=== PATIENT | female | born 1950 | race Caucasian/White ===

== ENCOUNTER 2018-02-06 20:48 | Emergency (ER) | payer MEDICARE, SELFPAY ==
[2018-02-06 20:48] VITALS: BP 122/68; PULSE 70; RESP 14; TEMP 36.6; O2SAT 97; BMI 39.3
--- NOTE | 2018-02-06 20:56 | NURSING ---
CALLED FOR EKG PER RN REQUEST, NO OLD EKG'S IN MUSE
--- NOTE | 2018-02-06 21:17 | CT_ITS ---
STUDY: CT BRAIN WITHOUT CONTRAST REASON FOR EXAM: Female, 67 years old. Trauma RADIATION DOSAGE (If Supplied By Facility): CTDIvol = ( 44.99 ) mGy, DLP = ( 846.73 ) mGycm TECHNIQUE: Transaxial CT imaging of the brain was performed without administration of intravenous contrast material. Individualized dose optimization techniques were used for this CT. COMPARISON: None. FINDINGS: There is no acute bleed or infarct. There are normal white matter tracts. The ventricles are normal in configuration. There is no hydrocephalus. There is a small amount of fluid in the left maxillary sinus. The visualized paranasal sinuses are otherwise clear. The mastoid air cells are well aerated. There is no skull fracture. There is a questionable left nasal bone fracture. Correlation for pain in this area is recommended. CT/Brain/Head without Contrast IMPRESSION: No acute intracranial abnormality. Questionable left nasal bone fracture. Correlation for pain in this area is recommended. Fluid in the left maxillary sinus. Electronically Signed: Damian Ash, at 21:53 EDT Tel , Service support ,
--- NOTE | 2018-02-06 21:17 | EKG12_ITS ---
Test Reason : Blood Pressure : / mmHG Vent. Rate : 071 BPM Atrial Rate : 071 BPM P-R Int : 200 ms QRS Dur : 100 ms QT Int : 402 ms P-R-T Axes : 026 -11 029 degrees QTc Int : 436 ms Normal sinus rhythm Inferior infarct , age undetermined Abnormal ECG Confirmed by MARKO ROSSI, KELBY ([id number]), digital editor TRICIA BERRY ([id number] on 02/10/2018 2:55:51 PM Referred By: SANJAY Confirmed By:KELBY ZHU MD
--- NOTE | 2018-02-06 21:30 | RAD_ITS ---
STUDY: X-RAY CHEST REASON FOR EXAM: Female, 67 years old. Syncope TECHNIQUE: Frontal and lateral views of the chest COMPARISON: None. FINDINGS: The lungs are clear. There are no pleural effusions. There is no pneumothorax. The heart is normal in size. There are degenerative changes noted in the spine. RAD/Chest PA and Lateral IMPRESSION: No acute thoracic pathology. Electronically Signed: Damian Ash, at 22:23 EDT Tel , Service support ,
[2018-02-06 21:41] LABS: Absolute Lymphocyte Count 1.79 X10^3/ul (0.83-4.51); Absolute Neutrophil Count 4.1 X10^3/uL (2.0-7.7); Basophil# 0.04 X10^3/uL; Basophil% 0.6 % (0-1); Eosinophil# 0.24 X10^3/uL; Eosinophils% 3.6 % (0-5); Hematocrit 41.9 % (37-47); Hemoglobin 13.3 g/dl (12.0-15.0); Lymphocyte # 1.79 X10^3/ul (4.0); Mean Corp Hgb Conc 31.7 g/gl (32-36); Mean Corpuscular Volume 91.5 fL (81-99); Mean Platelet Vol. 10.9 fl (6.2-12.0); Monocyte# 0.46 X10^3/uL; Monocyte% 6.9 % (0-10); Neutrophil # 4.09 X10^3/uL (2.7-7.7); Neutrophil % 61.7 % (47-70); Platelet Count 193 K/mm3 (150-450); RBC Distribution Width CV 13.3 % (11.6-14.6); RBC Distribution Width SD 44.2 fl (35.1-43.9); Red Blood Count 4.58 M/mm3 (4.2-5.4); White Blood Count 6.6 K/mm3 (4.4-11.0)
[2018-02-06 21:50] LABS: POSITIVE COUNT NO; POSITIVE DIFFERENTIAL NO; POSITIVE MORPHOLOGY NO
[2018-02-06 21:52] LABS: Anion Gap 6 (5-15); BUN 25 mg/dL (7-18); BUN/Creat Ratio 20.8 RATIO (10-20); Calcium,Total 9.2 mg/dL (8.5-10.1); Chloride 103 mmol/L (98-107); EST Glomerular Filtration Rate 48 mL/min (>60); Est Glom Filt Rate - Afr Amer 58 mL/min (>60); Estimated Creatinine Clearance 35.98 ml/min; Glucose 129 mg/dL (74-106); Potassium 3.4 mmol/L (3.5-5.1); Sodium Level 139 mmol/L (136-145)
[2018-02-06 22:48] VITALS: BP 134/76; PULSE 75; RESP 15; O2SAT 98
--- NOTE | 2018-02-06 23:33 | ED.DCSUM_ITS ---
- ER Visit Summary Date of Service: 02/06/18 Chief Complaint: Syncope History of Present Illness: The patient is a 67 F who states that tonight she was residing over a meeting. She was standing for approximately 10-15 minutes. She began to feel dizzy and then clammy and then nauseated. Eventually she was very sweaty. She states that she passed out falling down approximately 3 steps. She came to. She denies any chest pain or palpitations. He has never had syncope before. She has a history of hypertension and is on lisinopril hydrochlorothiazide for that. Physical Examination: Afebrile vital signs are stable Gen: Well-nourished well-developed Head: Normocephalic right-sided facial abrasions Eyes: Perrl EOMI ENT: TMs clear no rhinorrhea moist mucous membranes nasal swelling there is no septal hematoma Neck: Supple no lymphadenopathy no JVD nontender CVS: Regular rate rhythm no murmurs normal S1-S2 Respiratory: No distress clear to auscultation bilaterally chest nontender Abdomen: Soft nontender nondistended normal bowel sounds no masses Back: Nontender Extremity: Nontender no edema Skin: Normal color no rash Neuro: alert orientated ?3 CN II-XII intact normal strength sensation reflexes gait cerebellar Psych: Normal affect normal mood Test Results: EKG shows a sinus rhythm at a rate of 71. Intervals are normal. CBC was normal. Chemistry showed a glucose 129 BUN 25 creatinine 1.20 potassium 3.4. Troponin negative. Chest x-ray negative. CT of the brain demonstrates a possible nasal fracture. Emergency Department Course and Treatment: Patient has had no events on the monitor. She feels well. She will be discharged home with instructions to follow-up with her doctor. She is to return if syncope returns or she is worsening. Impression: 1. Syncope 2. Facial abrasions 3. Nasal fractures This note was generated with [employer] dictation software. It may contain incorrect words, spelling, and punctuation that were not noted in review of the chart prior to signing ED Disposition - Plan for ED Patient: Disposition: Home or Assisted Living Chief Complaint: Syncope Instructions: ED Fainting Unkn Cause Referrals: Aurelia Silva NP-C [Primary Care Provider] - 1-2 Weeks
[2018-02-06 23:45] VITALS: BP 129/60; PULSE 76; RESP 20; O2SAT 95
== END 2018-02-06 23:46 | disposition home or self-care (01) ==
PROVIDERS: Emergency Provider Emergency Medicine; Family Provider Family Medicine; PCP Family Medicine
DX: S02.2XXA Fracture of nasal bones, initial encounter for closed fracture (principal); S00.81XA Abrasion of other part of head, initial encounter; X58.XXXA Exposure to other specified factors, initial encounter; Y93.89 Activity, other specified; Y92.9 Unspecified place or not applicable; R55 Syncope and collapse; I10 Essential (primary) hypertension
CPT/HCPCS: 70450; 71046; 80048; 84484; 85025; 93005; 99285; A4216

== ENCOUNTER 2018-06-25 21:05 | Emergency (ER) | payer MEDICARE, SELFPAY ==
[2018-06-25 21:06] VITALS: BP 103/65; PULSE 67; PULSE 68; RESP 18; TEMP 36.9; O2SAT 97; O2SAT 99; BMI 34.0
--- NOTE | 2018-06-25 21:21 | EKG12_ITS ---
Test Reason : SYNCOPE Blood Pressure : / mmHG Vent. Rate : 069 BPM Atrial Rate : 069 BPM P-R Int : 208 ms QRS Dur : 094 ms QT Int : 434 ms P-R-T Axes : 025 -06 015 degrees QTc Int : 465 ms Normal sinus rhythm Inferior infarct , age undetermined Abnormal ECG Confirmed by MATT VALENTINE ([id number]), publication editor TRICIA BERRY ([id number]) on 07/01/2018 1:38:02 PM Referred By: CHACE Confirmed By:MATT VALENTINE
[2018-06-25 21:39] VITALS: BP 115/63; BP 116/71; BP 117/68; PULSE 76; PULSE 77
[2018-06-25 22:12] LABS: Absolute Lymphocyte Count 1.21 X10^3/ul (0.83-4.51); Absolute Neutrophil Count 3.1 X10^3/uL (2.0-7.7); Basophil# 0.03 X10^3/uL; Basophil% 0.6 % (0-1); Eosinophil# 0.18 X10^3/uL; Eosinophils% 3.6 % (0-5); Hemoglobin 12.1 g/dl (12.0-15.0); Lymphocyte # 1.21 X10^3/ul (4.0); Lymphocyte % 23.9 % (19-41); Mean Corp Hgb Conc 32.7 g/gl (32-36); Mean Corpuscular Volume 91.6 fL (81-99); Mean Platelet Vol. 11.5 fl (6.2-12.0); Monocyte# 0.49 X10^3/uL; Monocyte% 9.7 % (0-10); Neutrophil # 3.14 X10^3/uL (2.7-7.7); Platelet Count 162 K/mm3 (150-450); Red Blood Count 4.04 M/mm3 (4.2-5.4); White Blood Count 5.1 K/mm3 (4.4-11.0)
[2018-06-25 22:18] LABS: POSITIVE COUNT NO; POSITIVE DIFFERENTIAL NO; POSITIVE MORPHOLOGY NO
[2018-06-25 22:25] LABS: Anion Gap 10 (5-15); BUN 21 mg/dL (7-18); BUN/Creat Ratio 17.2 RATIO (10-20); Chloride 107 mmol/L (98-107); Creatinine, Serum 1.22 mg/dL (0.55-1.02); EST Glomerular Filtration Rate 47 mL/min (>60); Est Glom Filt Rate - Afr Amer 56 mL/min (>60); Estimated Creatinine Clearance 35.39 ml/min; Glucose 117 mg/dL (74-106); Potassium 3.8 mmol/L (3.5-5.1); Sodium Level 141 mmol/L (136-145)
[2018-06-25] MEDS: 0.9% Normal Saline 1,000 ML 1000 ML IV (22:31)
[2018-06-25] MEDS: 0.9% Normal Saline 1,000 ML 150 ML IV (22:31)
[2018-06-25 22:32] VITALS: BP 115/72; PULSE 69; RESP 20; O2SAT 98
--- NOTE | 2018-06-25 22:40 | ED.RN ---
pt reports cannot void at this time. has had 1 L NS and 2nd liter is running.
[2018-06-25 23:39] VITALS: BP 111/67; PULSE 73; RESP 16; O2SAT 100
--- NOTE | 2018-06-25 23:42 | ED.DCSUM_ITS ---
- ER Visit Summary Date of Service: 06/25/18 Chief Complaint: Syncope History of Present Illness: The patient is a 67 F who was cooking dinner tonight became lightheaded. She sat down and then had a syncopal episode. She did report a vomit one time after coming around. She had been outside in the heat approximately 30 minutes before this episode. She denies palpitations or chest pain. She states she remembers feeling lightheaded and got slightly clammy and nauseated before she passed out. She did have a similar episode in January and has had no symptoms in the interval timeframe. Physical Examination: Blood pressure is 103/65, temperature 98.4, heart rate 68 , respiratory rate 18, pulse ox 99% on room air. Patient sitting upright in bed no acute distress. She is alert and talkative. Head neck examination is normal. Heart is regular rate and rhythm. Lung sounds are clear. Abdomen is soft nontender. Skin examination was no rash or lesions. Neuro exam is unremarkable. Test Results: EKG is sinus at 69 with no sign of acute ischemia. CBC and chemistry studies significant for BUN of 21 and creatinine of 1.22. Patient is only had one prior set of labs here with similar renal function at that time. Emergency Department Course and Treatment: Patient was given 2 L of IV fluid but is still been unable to urinate for us. A bladder scan was performed and only has 138 cc of urine. A third liter is hung. After 3 L IV fluid patient is able to provide a urine sample. There is no sign of acute infection as she does have 50-100 epithelial cells only 10-25 white cells. Patient was not symptomatic getting up to the restroom. She will increase fluids over the next several days. As she did have a prodrome and did not have palpitations, I think she likely had vasovagal syncope. Patient does not wish to stay in the hospital. Treatment Plan: [] Disposition: Discharge Impression: Vasovagal syncope This note was generated with [employer] dictation software. It may contain incorrect words, spelling, and punctuation that were not noted in review of the chart prior to signing ED Disposition - Plan for ED Patient: Chief Complaint: Syncope Referrals: Aurelia Silva NP-C [Primary Care Provider] -
[2018-06-25] MEDS: 0.9% Normal Saline 1,000 ML 999 ML IV (23:45)
[2018-06-26 00:49] LABS: Bacteria 0 SEEN /hpf (None Seen); Mucous, Urine 0 SEEN /hpf (<or=2+); Red Blood Cells-Urine 0 SEEN /hpf (0-5)
[2018-06-26 00:50] LABS: Color, Urine Yellow (Yellow); Glucose, Dipstick Normal (Normal); Ketone-Dipstick 15 mg/dl (Negative); Leukocyte Esterase-Dipstick 500 /ul (Negative); Nitrite-Dipstick Negative (Negative); Occult Blood-Urine 10 /ul (Negative); Protein-Dipstick 15 mg/dl (Negative); Urine Bilirubin Dipstick Negative (Negative); Urine Clarity Sl. Cloudy (Clear); Urine Urobilinogen Normal (Normal)
[2018-06-26 01:00] LABS: Calcium Oxalate Crystals Ur RARE /hpf (<or=2+); Squamous Epithelial Cells - UA 50-100 SEEN /hpf (5-10); White Blood Cells 10-25 SEEN /hpf (0-5)
--- NOTE | 2018-06-26 01:04 | ED.DEP ---
ED Disposition - Plan for ED Patient: Disposition: Home or Assisted Living Chief Complaint: Syncope Instructions: ED Syncope Vasovagal Referrals: Aurelia Silva NP-C [Primary Care Provider] - 1 Week
[2018-06-26 01:07] VITALS: BP 121/69; PULSE 74; RESP 18; O2SAT 94
== END 2018-06-26 01:09 | disposition home or self-care (01) ==
PROVIDERS: Emergency Provider Emergency Medicine; Family Provider Family Medicine; PCP Family Medicine
DX: R55 Syncope and collapse (principal); I10 Essential (primary) hypertension
CPT/HCPCS: 80048; 81001; 85025; 93005; 96360; 96361; 99285; J7030; A4216

== ENCOUNTER → 2020-08-31 07:46 | Outpatient (CLI) | payer MEDICARE, SELFPAY ==
--- NOTE | 2020-08-31 07:49 | CT_ITS ---
STUDY: CT ABDOMEN AND PELVIS WITHOUT CONTRAST REASON FOR EXAM: Female, 70 years old. Other hydronephrosis. Patient has no pain or blood in urine. Recent laparoscopic HUA/BSO d/t uterine cancer RADIATION DOSAGE (If Supplied By Facility): CTDIvol = ( 7.43 ) mGy, DLP = ( 349.18 ) mGycm TECHNIQUE: Transaxial images were obtained from the dome of the diaphragm to the symphysis pubis without oral contrast, and without intravenous contrast. Sagittal and coronal images were reconstructed. Individualized dose optimization techniques were used for this CT. COMPARISON: None. FINDINGS: Minimal linear scarring along the anterior aspect of the lingular segment of the left upper lobe. Coronary artery calcification. There is a 1.1 cm cyst in the anterior aspect of the left lobe of the liver. There are multiple small gallstones. Normal spleen. Normal pancreas. Normal bilateral adrenal glands. Normal right kidney. Normal left kidney. There is a small hiatal hernia. Normal small intestine. Moderate amount of fecal material is seen in the colon. The appendix is visualized and appears normal. There is scattered atherosclerotic calcification of the abdominal aorta, without a demonstrated aneurysm. Normal inferior vena cava. Normal retroperitoneum. Normal urinary bladder. There is absence of the uterus consistent with a prior hysterectomy. Phleboliths are seen within the pelvis. Normal abdominal wall. Normal osseous structures. CT/Abdomen/Pelvis without Cont IMPRESSION: Multiple small gallstones. Moderate amount of fecal material is seen in the colon. Electronically Signed: Miquel Napoles, at 9:02 EST , Service support ,
== END ==
PROVIDERS: PCP Nurse Practitioner Family; Referring Provider Nurse Practitioner Adult Health; Visit Provider Nurse Practitioner Adult Health
DX: N13.39 Other hydronephrosis (principal)
CPT/HCPCS: 74176